=== PATIENT | male | born 1995 | race Caucasian/White ===

== ENCOUNTER 2017-08-27 18:04 | Inpatient (IN) | payer MEDICAID ==
[~2017-08-27] VITALS: Ht 177.8 cm; Wt 68.0 kg
--- NOTE | 2017-08-27 18:05 | NUR ---
PT PLACED ON 5150 HOLD BY BRIELLE BETHEA.
[2017-08-27 18:10] VITALS: BP 152/88
--- NOTE | 2017-08-27 18:10 | NUR ---
PT BIBA TO BED 3.
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
[2017-08-27 18:52] LABS: BASOPHILS # (AUTO) 0.1 K/uL (0.00-0.22); BASOPHILS % (AUTO) 1.2 % (0.0-2.0); EOSINOPHILS % (AUTO) 0.1 % (0.0-4.0); HEMATOCRIT 54.7 % (36-52); HEMOGLOBIN 18.3 g/dL (12.0-18.0); LYMPHOCYTES # (AUTO) 0.5 K/uL (2.0-11.5); LYMPHOCYTES % (AUTO) 4.7 % (20.5-51.1); MEAN CORPUSCULAR HEMOGLOBIN 31 pg (27-31); MEAN CORPUSCULAR HGB CONC 34 g/dL (33-37); MEAN CORPUSCULAR VOLUME 91 fL (80-94); MONOCYTES # (AUTO) 0.8 K/uL (0.8-1.0); MONOCYTES % (AUTO) 7.2 % (1.7-9.3); NEUTROPHILS # (AUTO) 9.9 K/uL (1.8-7.7); NEUTROPHILS % (AUTO) 86.8 % (42.2-75.2); PLATELET COUNT (AUTO) 181 K/uL (140-450); RED BLOOD CELL COUNT(AUTO) 5.99 MIL/uL (4.20-6.10); RED CELL DISTRIBUTION WIDTH 11.9 % (11.6-13.7); WHITE BLOOD COUNT (AUTO) 11.3 K/uL (4.8-10.8)
[2017-08-27 19:12] LABS: ALBUMIN 5.1 g/dL (3.4-5.0); ANION GAP 22.8 (8-16); ASPARTATE AMINOTRANSFERASE 18 U/L (15-37); CHLORIDE 99 mmol/L (98-107); GFR ARICAN-AMERICAN 121 mL/min (>90); GLUCOSE 112 mg/dL (74-106); POTASSIUM 3.8 mmol/L (3.5-5.1); SODIUM SERUM 139 mmol/L (136-145); TOTAL BILIRUBIN 2.4 mg/dL (0.0-1.0); UREA NITROGEN, BLOOD 23 mg/dL (7-18)
[2017-08-27 19:13] LABS: ACETAMINOPHEN < 0.5 ug/ml (10-30); SALICYLATE < 2.8 mg/dL (2.8-20.0)
--- NOTE | 2017-08-27 19:13 | NUR ---
Pt report given to Joya CORRAL. Transfer of care at this time.
--- NOTE | 2017-08-27 19:15 | NUR ---
LAB CALLLED FOR UA SPECIMEN PICKED UP
--- NOTE | 2017-08-27 20:17 | NUR ---
Dr. Hurd evaluating patient at bedside.
[2017-08-27 20:24] LABS: BARBITURATE, URINE NEG. ng/ml (NEG <=200); BENZODIAZEPINE, URINE NEG. ng/mL (NEG <=200); CANNABINOID, URINE POS. ng/mL (NEG <=50); COCAINE, URINE NEG. ng/mL (NEG <=300); OPIATE, URINE NEG. ng/mL (NEG <=2000); PHENCYCLIDINE SCREEN,URINE NEG. ng/mL (NEG <=25)
--- NOTE | 2017-08-27 20:30 | NUR ---
Patient appears to be resting comfortably in bed. Vital Signs within normal limits. Respirations even and unlabored. family at bedside
[2017-08-27] MEDS ORDERED: NACL 0.9% 1,000 ML IV ONE (21:20)
--- NOTE | 2017-08-27 21:30 | NUR ---
Patient appears to be resting comfortably in bed. Vital Signs within normal limits. Respirations even and unlabored. family at bedside
--- NOTE | 2017-08-27 21:40 | NUR ---
PACKET FAXED TO [facility] [phone] ,SPOKE TO SEJAL CANTU SHE STATED NO VACANCY AT THIS TIME, STILL AWAITNG TO HEAR FROM [phone] ,PACKET FAXED, SPOKE TO MANNIE AT INTAKE ,PACKET STILL BEING REVIEWED , WILL CALL BACK LATER, JERMAINE LOPEZ MADE AWARE.
--- NOTE | 2017-08-27 22:00 | NUR ---
PT GIVEN DINNER, PLACED IN FRONT OF PATIET. PT REFUSING TO EAT
--- NOTE | 2017-08-27 23:00 | NUR ---
PT STILL REFUSING TO EAT DINNER. Patient appears to be resting comfortably in bed. Vital Signs within normal limits. Respirations even and unlabored. SITTER AT BEDSIDE
--- NOTE | 2017-08-28 00:09 | NUR ---
THERE ARE NO VACANCY AT [facility] AT THIS TIME , ER MADE AWARE .
[2017-08-28] MEDS ORDERED: NACL 0.9% 1,000 ML IV SCH ×2 (00:37→08:40)
[2017-08-28] MEDS ORDERED: MORPHINE SULFATE 4 MG/ML SYR IVP PRN (00:40)
[2017-08-28] MEDS ORDERED: HYDROcodone/APAP 7.5/325 MG 1 TAB PO PRN (00:40)
[2017-08-28] MEDS ORDERED: ONDANSETRON 4 MG/2 ML VIAL IM/IVP PRN (00:40)
[2017-08-28] MEDS ORDERED: DOCUSATE SODIUM 100 MG GELCAP PO PRN (00:40)
[2017-08-28] MEDS ORDERED: ACETAMINOPHEN 325 MG TAB PO PRN (00:40)
--- NOTE | 2017-08-28 00:40 | NUR ---
Patient appears to be resting comfortably in bed. Vital Signs within normal limits. Respirations even and unlabored. SITTER AT BEDSIDE
[2017-08-28 01:12] LABS: CHOL/HDL RATIO 3.6 (1-4.5); FREE T4 (FREE THYROXINE) 1.33 ng/dL (0.76-1.46); MAGNESIUM 1.9 mg/dL (1.8-2.4); PHOSPHORUS 3.6 mg/dL (2.5-4.9); THYROID STIMULATING HORMONE 1.23 uIU/mL (0.34-3.74)
--- NOTE | 2017-08-28 01:20 | NUR ---
Patient will be admitted to care of [facility]. Admited to TELE. Will go to room 109B. Belongings list completed. BEDSIDE Report to KAYLEIGH CORRAL. IV SL AND PATENT
[2017-08-28 01:30] VITALS: BP 111/48
--- NOTE | 2017-08-28 01:49 | NUR ---
CALLED LORENZO BRIDGES (MOTHER) #[phone] TO OBTAINED PT'S HISTORY, I TOLD HER THAT WE ARE ADMITTING THE PT AND I NEED TO GET SOME INFORMATION REGARDING HIS MEDICAL HX, PT'S MOTHER IS MOSTLY LUXEMBOURGER SPEAKING BUT SPEAKS A LITTLE NAMIBIAN, KEEP ON SAYING SHE HAS THE PT'S SOCIAL SECURITY NUMBER, MARISA KELSEY TALKED TO HER, PER LAURE SHE IS UPSET BECAUSE SHES BEEN CALLED SEVERAL TIMES ALREADY BUT SHE SAID THAT THE PT HAS NO SUICIDE ATTEMPT BEFORE BUT HIS BEEN DEPRESSED RECENTLY AND THEN SHE HANGED UP, UNABLE TO OBTAIN HX AT THIS TIME, PT REFUSED TO SPEAK WITH BOTH EYES CLOSED.
--- NOTE | 2017-08-28 02:42 | NUR ---
PT SEEN MOVING HIS HEAD, ASK PT IF HIS IN PAIN, NEEDS URINAL OR IF HIS HUNGRY, PT SHOOK HIS HEAD BUT STILL NOT SPEAKING AND EYES CLOSED, ASK IF HE STILL HAVING SUICIDAL THOUGHTS, PT NO RESPONSE, NOT NODDING OR SHAKING HIS HEAD, MONITORED CLOSELY.
--- NOTE | 2017-08-28 03:40 | NUR ---
PT SEEN WITH EYES OPEN, ASKED IF HE NEEDS SOMETHING LIKE WATER OR FOOD, HE SAID WATER, DR SERNA MADE AWARE, PROVIDED WITH SIPS OF WATER, TOLERATED WELL, VITAL SIGNS STABLE, SR ON TELE, DENIES ANY PAIN, IVF INFUSING WELL, MONITORED CLOSELY.
[2017-08-28 04:00] VITALS: BP 110/55
--- NOTE | 2017-08-28 05:30 | NUR ---
PT AMBULATED TO BR WITH STEADY GAIT, PROVIDED WITH CONTAINER FOR URINE, PT AMBULATED BACK TO BED, PT DIDN'T COLLECT ANY URINE SAMPLE, REINFORCE TO COLLECT URINE NEXT TIME, ASK PT IF HE HAD A BM, PT NODS HIS HEAD, MONITORED CLOSELY.
[2017-08-28 06:14] LABS: PROTHROMBIN TIME 11.5 secs (10.8-13.4)
[2017-08-28 07:00] LABS: BASOPHILS # (AUTO) 0.2 K/uL (0.00-0.22); BASOPHILS % (AUTO) 2.4 % (0.0-2.0); EOSINOPHILS % (AUTO) 0.7 % (0.0-4.0); HEMATOCRIT 44.1 % (36-52); HEMOGLOBIN 15.2 g/dL (12.0-18.0); LYMPHOCYTES # (AUTO) 1.2 K/uL (2.0-11.5); LYMPHOCYTES % (AUTO) 18.3 % (20.5-51.1); MEAN CORPUSCULAR HEMOGLOBIN 31 pg (27-31); MEAN CORPUSCULAR HGB CONC 34 g/dL (33-37); MEAN CORPUSCULAR VOLUME 90 fL (80-94); MONOCYTES # (AUTO) 0.6 K/uL (0.8-1.0); MONOCYTES % (AUTO) 9.9 % (1.7-9.3); NEUTROPHILS # (AUTO) 4.4 K/uL (1.8-7.7); NEUTROPHILS % (AUTO) 68.7 % (42.2-75.2); PLATELET COUNT (AUTO) 148 K/uL (140-450); RED BLOOD CELL COUNT(AUTO) 4.88 MIL/uL (4.20-6.10); RED CELL DISTRIBUTION WIDTH 11.9 % (11.6-13.7); WHITE BLOOD COUNT (AUTO) 6.4 K/uL (4.8-10.8)
--- NOTE | 2017-08-28 07:30 | NUR ---
RECEIVED PT REPORT FROM SHEET HEATER HELPER RN. PT SLEEPING, AROUSED TO NAME, ORIENTED TO NAME, PLACE. REFUSED TO ANSWER ANY OTHER QUESTIONS. VITALS TAKEN. IV NOTED TO THE RIGHT HAND 16G, DRY, INTACT, AND ASYMPTOMATIC, INFUSING NS. ON 1:1 SITTER. WILL MONITOR CLOSELY.
--- NOTE | 2017-08-28 07:32 | NUR ---
PT SLEEPING, NO SIGNS OF DISTRESS, BEDSIDE REPORT GIVEN TO ELLIS WHITE FOR CONTINUITY OF CARE, SITTER AT BEDSIDE.
[2017-08-28 07:36] LABS: ANION GAP 19.1 (8-16); CARBON DIOXIDE 21.3 mmol/L (21-32); CREATININE 0.8 mg/dL (0.7-1.3); POTASSIUM 3.4 mmol/L (3.5-5.1)
[2017-08-28 07:48] LABS: MAGNESIUM 1.8 mg/dL (1.8-2.4)
[2017-08-28 08:00] VITALS: BP 101/49
--- NOTE | 2017-08-28 09:10 | NUR ---
PT HAS TAKEN HIS MEDICATION, OFFERED PT BREAKFAST, PT REFUSED TO EAT. OFFERED PT JUICE BOX. PT HAD A FEW SIPS. STILL REFUSED TO TALK AT THIS TIME.
[2017-08-28] MEDS: LACTOBACILLUS RHAMNOSUS GG 1 EACH CAP PO SCH (09:12)
[2017-08-28] MEDS: POTASSIUM CHLORIDE 20% 40 MEQ/15 ML UDC GT SCH (09:12)
[2017-08-28 09:25] LABS: ALBUMIN 3.7 g/dL (3.4-5.0); TOTAL BILIRUBIN 2.3 mg/dL (0.0-1.0)
--- NOTE | 2017-08-28 09:55 | NUR ---
PT REFUSED US OF ABD. Addendum: 08/28/17 at 1536 by Vipul Lyon RN ASKED IF WE CAN DO AN US TO TAKE PIC OF HIS ABD, PT SHOOK HIS HEAD.
--- NOTE | 2017-08-28 10:10 | NUR ---
PT ADMITTED TO SUICIDE ATTEMPT BEFORE BUT REFUSED TO TALK ABOUT WHEN AND HOW. HOWEVER, PT DENIES ANY SUICIDAL IDEATION AT THIS TIME.
--- NOTE | 2017-08-28 10:30 | NUR ---
PT'S SISTER CALLED, PER SISTER, SHE FOUND MARIJUANA AND CRYSTAL METH IN PT'S ROOM. SHE ALSO STATED THAT PT 'S RADICAL RESTORATION AND PT THINKS FASTING IS A WAY OF PUNISHING HIMSELF.
--- NOTE | 2017-08-28 12:00 | NUR ---
PT REFUSED TO EAT LUNCH. PT ONLY FINISHED THE ORANGE JUICE BOX. HE IS READING BIBLE IN [place], NO ACUTE DISTRESS. Addendum: 08/28/17 at 1541 by Vipul Lyon RN ON 1:1 LEDY
[2017-08-28 16:00] VITALS: BP 113/76
--- NOTE | 2017-08-28 16:00 | NUR ---
PT HAS BEEN SEEN BY PSYCH Addendum: 08/28/17 at 1743 by Vipul Lyon RN PT SITTING AT THE EDGE OF THE BED. NO SOB OR DISTRESS.
--- NOTE | 2017-08-28 16:55 | NUR ---
PT'S GODFATHER IS HERE TO VISIT PT. PT STARTED EATING LUNCH, CHATTING AND SMILING. NO S/S OF ACUTE DISTRESS.
--- NOTE | 2017-08-28 18:25 | NUR ---
PT ATE DINNER. URINE COLLECTED AND SENT TO LAB. NO DISTRESS NOTED.
--- NOTE | 2017-08-28 19:00 | NUR ---
ASSUMED THE ROLE OF NURSE SITTER FOR THE PATIENT. RECD. SLEEPING IN BED, RESPIRATION EVEN AND UNLABORED. IV OF NS AT 100 ML/HR INFUSING, RIGHT HAND G 16. A NURSE NEAR DOOR WATCHES PATIENT. WILL CONTINUE TO MONITOR FOR SAFETY AND BEHAVIOR WATCH CLOSELY FOR THE SHIFT. NO APPEARANCE OF PAIN NOTED 0/10.
--- NOTE | 2017-08-28 19:40 | NUR ---
ENDORSED PT TO CASE FILLER RN. PT IS IN STABLE CONDITION.
--- NOTE | 2017-08-28 19:41 | NUR ---
AWAKE WITH EYES CLOSED. DID NOT EVEN LOOK WHEN SELF INTRODUCED. A/OX4. DENIES ANY SUICIDAL THOUGHTS AT THIS TIME. NOTED MEAL TRAY AT THE BEDSIDE WITH ONLY 25% EATEN FOR DINNER. PLAN OF CARE FOR THE SHIFT DISCUSSED. JUST NODS HEAD.
[2017-08-28 20:02] LABS: APPEARANCE,URINE CLEAR (CLEAR); BILIRUBIN,URINE 1+ (NEGATIVE); BLOOD, URINE NEGATIVE (NEGATIVE); COLOR,URINE YELLOW (YELLOW); LEUKOCYTE ESTERASE ,URINE NEGATIVE (NEGATIVE); NITRITE, URINE NEGATIVE (NEGATIVE); UGLUCOSE NEGATIVE (NEGATIVE)
--- NOTE | 2017-08-28 20:15 | NUR ---
COMPLAINT THAT THE IV SITE HURTS A LITTLE. DISCONNECT FROM IV LINE. EXPLAINED WILL CONNECT AGAIN FOR THE IV ANTIBIOTIC TOMORROW. PATIENT IS ALREADY SALINE LOCK PER ORDER BY .
[2017-08-28 20:16] LABS: RBC,URINE 0-5 (RARE) /HPF (0-5)
--- NOTE | 2017-08-28 20:45 | NUR ---
SINGING SOFTLY WHILE LAYING COMFORTABLY IN BED.
--- NOTE | 2017-08-28 21:30 | NUR ---
MADE SOME NOT SO LOUD SHOUT AND WHEN ASK IF HE IS OK, JUST NODS HEAD. INQUIRED IF HE'S COLD AND NEEDS WARM BLANKET, STATED "YES". WARM BLANKET GIVEN.
--- NOTE | 2017-08-28 22:45 | NUR ---
SLEEPING COMFORTABLY IN BED.
[2017-08-29] VITALS: BP 101/49
--- NOTE | 2017-08-29 | NUR ---
SLEEPING COMFORTABLY IN BED.
--- NOTE | 2017-08-29 01:31 | NUR ---
AT THIS TIME , [facility] [phone] [phone] HAD NO VACANCY THE WHOLE NIGHT .
--- NOTE | 2017-08-29 06:00 | NUR ---
ABLE TO SLEPT WELL. NO NOTED SUICIDAL BEHAVIOR DURING SHIFT. CONTINUED SLEEPING, NEW 1:1 SITTER MONITORING PATIENT.
[2017-08-29 07:12] LABS: HEMATOCRIT 45.6 % (36-52); HEMOGLOBIN 15.3 g/dL (12.0-18.0); MEAN CORPUSCULAR HEMOGLOBIN 31 pg (27-31); MEAN CORPUSCULAR HGB CONC 34 g/dL (33-37); MEAN CORPUSCULAR VOLUME 91 fL (80-94); PLATELET COUNT (AUTO) 161 K/uL (140-450); RED BLOOD CELL COUNT(AUTO) 4.99 MIL/uL (4.20-6.10); WHITE BLOOD COUNT (AUTO) 4.3 K/uL (4.8-10.8)
[2017-08-29 07:17] LABS: ANION GAP 12.2 (8-16); CARBON DIOXIDE 27.9 mmol/L (21-32); CREATININE 0.8 mg/dL (0.7-1.3); POTASSIUM 4.1 mmol/L (3.5-5.1)
[2017-08-29 07:22] LABS: T4 (THYROXINE) 8.9 ug/dL (4.5-12.0)
--- NOTE | 2017-08-29 07:25 | NUR ---
ENDORSED TO ELLIS LOPEZ FOR CONTINUITY OF CARE.
--- NOTE | 2017-08-29 07:26 | NUR ---
RECEIVED REPORT FROM CONTRACT CLERK AUTOMOBILE NURSE. PATIENT IS AAOX4, NO SIGNS AND SYMPTOMS OF ACUTE DISTRESS NOTED AT THIS TIME. HAS IV TO THE RIGHT HAND 16G, ON SALINE LOCK AT THIS TIME. PATIENT HAS SITTER. ON SPECIAL BED FOR 5150, IN LOWEST POSITION, SIDE RAILS UP X2. ROOM MODIFIED TO 5150. WILL CONTINUE TO MONITOR.
[2017-08-29 08:00] VITALS: BP 107/57
[2017-08-29 08:43] LABS: EOSINOPHILS % (MANUAL) 2 % (0-4); LYMPHOCYTES % (MANUAL) 38 % (20-46); MONOCYTES % (MANUAL) 7 % (5-12)
[2017-08-29] MEDS: POTASSIUM CHLORIDE 20% 40 MEQ/15 ML UDC GT SCH (09:00)
[2017-08-29] MEDS: LACTOBACILLUS RHAMNOSUS GG 1 EACH CAP PO SCH (09:00)
--- NOTE | 2017-08-29 09:45 | NUR ---
WENT IN TO PATIENTS ROOM TO HANG ROCEPHIN AND ADMINISTER LACTOBACILLUS. CALLED PATIENTS NAME A COUPLE OF TIMES AND HE DIDN'T WANT TO RESPOND, JUST PULLED THE BLANKETS OVER HIS HEAD. DID NOT WANT TO COMMUNICATE WHEN I ASKED IF IT WAS OKAY TO SCAN HIS WRISTBAND THAT I HAVE A COUPLE OF MEDICATIONS. ASSUMING HE IS REFUSING MEDICATIONS AT THIS TIME. WILL CONTINUE TO MONITOR.
--- NOTE | 2017-08-29 10:34 | NUR ---
CALLED [facility] AND SPOKE WITH ART. NO BEDS YET. FAXED NEW FACE SHEET TO ART.
--- NOTE | 2017-08-29 11:29 | NUR ---
PATIENT HAS BEEN SCREENED AND CATEGORIZED LOW NUTRITION RISK. PATIENT WILL BE SEEN WITHIN 7 DAYS OF ADMISSION. 09/04/[address]
--- NOTE | 2017-08-29 11:45 | NUR ---
Called [facility]. Left a message for intake regarding bed availability. Will follow up. Called [facility]. No beds at this time, but pending discharges. Will fax packet.
--- NOTE | 2017-08-29 14:00 | NUR ---
Received call back from [facility]. No beds available at this time.
--- NOTE | 2017-08-29 14:30 | NUR ---
Called [facility] and spoke with Ginger. No beds at this time. Called [facility] and spoke with Jim. Possible beds. Packet faxed with patient info.
--- NOTE | 2017-08-29 14:43 | NUR ---
Callled [facility] and spoke with Codi. No male beds today.
[2017-08-29 16:00] VITALS: BP 122/47
--- NOTE | 2017-08-29 17:00 | NUR ---
ATTEMPTED TO GIVE PATIENT NEW ORDER OF WELLBUTRIN. PATIENT IS SITTING UP IN BED HAS A VISITOR. BUT PATIENT REFUSED TO TAKE THE MEDICATION. WILL MAKE DR NOVAK AWARE.
[2017-08-29] MEDS ORDERED: buPROPion 150 MG TABER PO SCH (17:30)
--- NOTE | 2017-08-29 19:30 | NUR ---
Patient's Plan of Care was discussed and reviewed with TOP BOTTOM ATTACHING MACHINE OPERATOR: CLARK NO
--- NOTE | 2017-08-29 19:30 | NUR ---
ENDORSED PATIENT TO GARBAGE STOKER NURSE FOR CONTINUITY OF CARE. PATIENT IN STABLE CONDITION.
--- NOTE | 2017-08-29 19:31 | NUR ---
RECD. RESTING IN BED, AWAKE, A/OX4. IV SALINE LOCK AT THE RIGHT HAND G16, PATENT AND INTACT. MOM AND BROTHER AT THE BEDSIDE. ADVISED PATIENT TO TAKE HIS MEDICATIONS AND EAT TO BE ABLE TO GET WELL, JUST SMILED AND SAID HE DOES NOT NEED THEM. WILL INFORM MD. PLAN OF CARE FOR THE SHIFT DISCUSSED. VERBALIZED UNDERSTANDING. DENIES PAIN 0/10.
--- NOTE | 2017-08-29 20:00 | NUR ---
AWAITING FOR ROLAND INTAKE AT [facility], SHE WILL CALL BACK .
--- NOTE | 2017-08-29 21:30 | NUR ---
COMPLAINING OF SLIGHT PAIN IN THE IV SITE. FLUSHED WITH WITH NS, WITH GOOD RETURN BLOOD FLOW. EXPLAINED THAT PATIENTS NEED AN IV LINE FOR ANY EMERGENCY IF NEEDED. AGREED TO KEEP IV LINE.
--- NOTE | 2017-08-29 21:45 | NUR ---
INFORMED DR. ENRIQUE PATIENT IS REFUSING MEDICATIONS REPORTED BY AM NURSE, WILL SPEAK WITH PATIENT.
--- NOTE | 2017-08-29 23:27 | NUR ---
[facility] has no vacancy at this time., also spoke to Yessenia at [facility] , she will call back if bed is available.
[2017-08-30] VITALS: BP 107/60
[2017-08-30] MEDS ORDERED: BUPR150T22 PO (06:29)
[2017-08-30 08:11] VITALS: BP 98/40
[2017-08-30] MEDS ORDERED: buPROPion 150 MG TABER PO SCH (09:00)
[2017-08-30] MEDS: LACTOBACILLUS RHAMNOSUS GG 1 EACH CAP PO SCH (10:19)
[2017-08-30] MEDS: POTASSIUM CHLORIDE 20% 40 MEQ/15 ML UDC GT SCH (10:19)
[2017-08-30 13:34] VITALS: BP 104/55
--- NOTE | 2017-08-30 15:16 | NUR ---
Patient is discharge, mother to take patient home, mother was given prescription for wellbutrin 150 mg this morning. Next three days, Wellbutrin 150 mg x 3 days, then Welbutin 150 mg twice a day. Patient to follow up with Valentine sandoval, on September 04, at 1300, Mother knows the day of the appointment. Hep lock was discontinued.
== END 2017-08-30 16:00 | disposition home or self-care (01) | DRG 812 ==
LOC: MED 18:04 → MTU 08-28 00:40
PROVIDERS: ADMIT Family Medicine Sports Medicine; ATTEND Family Medicine Sports Medicine
DX: T43.621A Poisoning by amphetamines, accidental (unintentional), initial encounter (principal); N17.0 Acute kidney failure with tubular necrosis; G92 Toxic encephalopathy; R45.851 Suicidal ideations; F19.10 Other psychoactive substance abuse, uncomplicated; E78.5 Hyperlipidemia, unspecified; F12.20 Cannabis dependence, uncomplicated; F33.1 Major depressive disorder, recurrent, moderate; F15.20 Other stimulant dependence, uncomplicated; E87.6 Hypokalemia; Y92.89 Other specified places as the place of occurrence of the external cause; E80.6 Other disorders of bilirubin metabolism; R00.0 Tachycardia, unspecified; F64.0 Transsexualism; F43.9 Reaction to severe stress, unspecified; F41.9 Anxiety disorder, unspecified; Z53.29 Procedure and treatment not carried out because of patient's decision for other reasons
CPT/HCPCS: 36415; 71045; 80048; 80053; 80305; 81001; 82040; 82150; 82247; 83036; 83605; 83690; 83735; 83880; 84100; 84436; 84439; 84443; 84479; 84484; 85025; 85610; 85730; 87040; 87081; 93005; 96360; 99285; G0480; G0482; J0696; J7030; J7060; Q0092

== ENCOUNTER 2018-09-07 10:25 | Emergency (ER) | payer MEDICAID, OTHER ==
[~2018-09-07] VITALS: Ht 175.3 cm; Wt 70.1 kg
[~2018-09-07 10:25] MED LIST: BUPR150T22 PO
[2018-09-07 10:30] VITALS: BP 128/61
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
[2018-09-07] MEDS ORDERED: IBUPROFEN 800 MG TAB PO ONE (10:55)
--- NOTE | 2018-09-07 11:02 | NUR ---
pt refusedibuprofen, risks and benefits explained, pt still refused.
[2018-09-07 12:23] VITALS: BP 125/63
--- NOTE | 2018-09-07 12:25 | NUR ---
Patient discharged with v/s stable. Written and verbal after care instructions given and explained. Patient verbalized understanding. Ambulatory with steady gait. All questions addressed prior to discharge. Advised to follow up with PMD. referred pt to hand specialist, referral address and telephone number given. Addendum: 09/07/18 at 1227 by LIDIA pt refused spling and sling.
== END 2018-09-07 12:25 | disposition home or self-care (01) ==
LOC: MED 10:25
DX: M25.531 Pain in right wrist (principal); M25.541 Pain in joints of right hand; Z98.890 Other specified postprocedural states; Z79.899 Other long term (current) drug therapy; V00.131A Fall from skateboard, initial encounter; Y93.51 Activity, roller skating (inline) and skateboarding; Y92.89 Other specified places as the place of occurrence of the external cause; Y99.8 Other external cause status
CPT/HCPCS: 73110; 73130; 99283; Q0092